=== PATIENT | male | born 1995 | race Caucasian/White ===

== ENCOUNTER 2016-06-05 00:58 | Emergency (ER) | payer OTHER ==
[2016-06-05] MEDS ORDERED: RABIES VACC, HUMAN DIPLOID/PF 2.5 UNIT VIAL (RABAVERT) IM ONE (01:33)
[2016-06-05] MEDS ORDERED: RABIES IMMUNE GLOBULIN 300 UNIT/2 ML VIAL IM ONE (01:33)
--- NOTE | 2016-06-05 02:01 | EDPHY ---
H & P Stated Complaint: possble rabies exposure handling raccoons, no cuts bites or scratches - Personal History Current Tetanus/Diphtheria Vaccine: Yes Current Tetanus Diphtheria and Acellular Pertussis (TDAP): Yes Tetanus Vaccine Date: 2013 - Medical/Surgical History Hx Asthma: No Hx Chronic Respiratory Disease: No Hx Diabetes: No Hx Cardiac Disease: No Hx Renal Disease: No Hx Cirrhosis: No Hx Alcoholism: No Hx HIV/AIDS: No Hx Splenectomy or Spleen Trauma: No Other PMH: tonsillitis - Social History Smoking Status: Never smoked HPI/ROS: Chief complaint: Possible rabies exposure History of present illness: This is a 20-year-old male who presents to emergency department for possible rabies exposure. Patient reports 2 days ago he rescued a litter of wild raccoon's out of the wall in his house. He subsequently cared for them for 24 hours holding them and feeding them with bottles. He [facility] a [facility] today who recommended he seek medical care for possible exposure to rabies. Patient states he was not scratched or bitten. He is not sure but thinks the animal wildlife refuge will be testing the raccoon's for rabies. He has no other complaints. (Piotr Barker) - Physical Exam Exam: General Appearance: Alert, nontoxic. Eyes: Pupils equal and round no injection. Respiratory: Chest is non tender, lungs are clear to auscultation. Cardiac: regular rate and rhythm Gastrointestinal: Abdomen is soft and non tender, no masses, bowel sounds normal. Musculoskeletal: Neck is supple and non tender. Extremities have full range of motion and are non tender. Skin: No rashes or lesions. (Piotr Barker) Constitutional: Initial Vital Signs Temperature (C) 36.3 C 06/05/16 01:07 Heart Rate 55 L 06/05/16 01:07 Respiratory Rate 12 06/05/16 01:07 Blood Pressure 113/68 06/05/16 01:07 O2 Sat (%) 99 06/05/16 01:07 O2 Delivery Mode Room Air Allergies/Adverse Reactions: No Known Allergies Allergy (Unverified 06/05/16 01:07) Home Medications: Medication Instructions Recorded NK [No Known Home Meds] 06/05/16 Medical Decision Making ED Course/Re-evaluation: Patient seen under the supervision of my secondary supervising physician Dr. Melba James. Patient presents to the emergency department for possible rabies exposure. Patient was not bitten or scratched by the raccoons. I consulted with Infectious Disease, Dr. Renae Mccarty. She recommends starting them on rabies prophylaxis and having them follow up in clinic. I have discussed this with the patient and he is in agreement with plan. He is given contact information for follow-up with Infectious Disease. He understand he will need 3 more vaccinations. They are encouraged to follow up with the wildlife refuge to see if they are testing the animals for rabies. Strict return precautions given. (Piotr Barker) PHYSICIAN DOCUMENTATION: The patient was evaluated and managed by the Physician [employer]. My co- signature indicates that I have reviewed this chart and I agree with the findings and plan of care as documented. I am the secondary supervising physician. (Melba James) - Data Points Medications Given: Discontinued Medications Rabies Immune Globulin (Imogam Rabies Ht 2ml) 1,500 unit IM .ONCE ONE Stop: 06/05/16 01:34 Last Admin: 06/05/16 02:56 Dose: 1,500 unit Rabies Vaccine Human Diploid Cell (Rabavert) 2.5 unit IM .ONCE ONE Stop: 06/05/16 01:34 Last Admin: 06/05/16 02:57 Dose: 2.5 unit Departure - Departure Disposition: Home, Routine, Self-Care Clinical Impression: Rabies exposure Condition: Good Instructions: Rabies Vaccine (By injection), Rabies Immune Globulin (By injection), Rabies (ED) Additional Instructions: Please follow-up with Infectious Disease for continued evaluation and care You received rabies immunoglobulin today You received your 1st rabies vaccination today, today is day 0, you will need a vaccination on day 3 (3), day 7 (7) and day 14 (14) you can get that through Infectious Disease or by returning to this emergency room Please find out if the raccoon eyes are being tested for rabies If you have other concerns return to the emergency room Referrals: NONE *PRIMARY CARE P,. [Primary Care Provider] - As per Instructions Renae Mccarty MD [Medical Doctor] - As per Instructions
[2016-06-05 03:00] VITALS: BP 115/80; PULSE 45; RESP 16; TEMP 97.5; O2SAT 97
== END 2016-06-05 03:00 | disposition home or self-care (01) ==
DX: Z20.3 Contact with and (suspected) exposure to rabies (principal); Z23 Encounter for immunization

== ENCOUNTER 2016-06-12 18:44 | Emergency (ER) | payer OTHER ==
[2016-06-12 18:50] VITALS: BP 105/60; PULSE 86; RESP 18; TEMP 97.5; O2SAT 97
[2016-06-12] MEDS ORDERED: RABIES VACC, HUMAN DIPLOID/PF 2.5 UNIT VIAL (RABAVERT) IM ONE (19:01)
--- NOTE | 2016-06-12 19:10 | EDPHY ---
H & P Time Seen by Provider: 06/12/16 19:06 HPI/ROS: Chief complaint. Needs rabies shot HPI. Patient was seen in our emergency department approximately 10 days ago after handling raccoon's. Not bitten but concern for scratches and rabies transmission. Received immunizations on day 1 and day 3. Needs day 7 rabies shot today. No complaints ROS Constitutional. no fever/chills, no weakness Eyes. no problems with vision ENT. no sore throat, no nasal drainage Cardiovascular. no chest pain Respiratory. no shortness of breath, no cough Abdominal. no abdominal pain, no nausea/vomiting, no diarrhea . no problems urinating MS. no calf pain/swelling, no neck/back pain, no joint pain Skin. no rash Lymph. no swollen glands Neuro. no headache, no dizziness, no difficulty walking or with speech Past Medical/Surgical History: Healthy Social History: Single, nonsmoker, no alcohol Smoking Status: Never smoked Physical Exam: General Appearance: Alert well-developed male no distress vital signs stable Eyes: Pupils equal and round no pallor or injection. ENT, Mouth: Mucous membranes are moist. Respiratory: There are no retractions, lungs are clear to auscultation. Cardiovascular: Regular rate and rhythm. Gastrointestinal: Abdomen is soft and nontender, no masses, bowel sounds normal. Neurological: Awake and alert, sensory and motor exams grossly normal. Skin: Warm and dry, no rashes. Musculoskeletal: Neck is supple nontender. Extremities symmetrical, full range of motion. Psychiatric: Patient is oriented X 3, there is no agitation. Constitutional: Initial Vital Signs Temperature (C) 36.4 C 06/12/16 18:47 Heart Rate 86 06/12/16 18:47 Respiratory Rate 18 06/12/16 18:47 Blood Pressure 105/60 06/12/16 18:47 O2 Sat (%) 97 06/12/16 18:47 O2 Delivery Mode Room Air Allergies/Adverse Reactions: No Known Allergies Allergy (Unverified 06/05/16 01:07) Home Medications: Medication Instructions Recorded NK [No Known Home Meds] 06/05/16 Medical Decision Making ED Course/Re-evaluation: Rabies vaccine given Differential Diagnosis: Remained stable without evidence for rabies Departure - Departure Disposition: Home, Routine, Self-Care Clinical Impression: Rabies vaccine Condition: Good Instructions: Rabies Vaccine (By injection) Additional Instructions: You need 1 more rabies vaccine in 1 week on June 19 Referrals: Brandon Ching MD [Primary Care Provider] - As per Instructions
== END 2016-06-12 19:28 | disposition home or self-care (01) ==
DX: Z23 Encounter for immunization (principal)